=== PATIENT | female | born 1990 | race Caucasian/White ===

== ENCOUNTER 2019-02-21 19:10 | Emergency (ER) | payer MEDICAID ==
[~2019-02-21] VITALS: Ht 165.1 cm; Wt 80.1 kg
[2019-02-21 19:19] VITALS: BP 154/74
--- NOTE | 2019-02-21 19:50 | NUR ---
pt to room from lobby
[2019-02-21] MEDS ORDERED: DEXAMETHASONE 4 MG TABLET PO STA (20:29)
[2019-02-21] MEDS ORDERED: DEXAMETHASONE 4 MG TABLET ONE (21:41)
[2019-02-21 21:52] LABS: HCG UR SG 1.008 (1.003-1.030); MICROSCOPIC AUTO
[2019-02-21 21:54] LABS: CULTURE INDICATED? NO
== END 2019-02-21 23:00 | disposition home or self-care (01) ==
LOC: ED 22:50
DX: J02.9 Acute pharyngitis, unspecified (principal); L04.0 Acute lymphadenitis of face, head and neck; H92.01 Otalgia, right ear
CPT/HCPCS: 76536; 81001; 81025; 87081; 87880; 99284